=== PATIENT | male | born 1955 | race Caucasian/White ===

== ENCOUNTER 2018-02-11 15:53 | Inpatient (IN) | payer BC ==
[~2018-02-11] VITALS: Ht 188 cm; Wt 162.0 kg
[2018-02-11 17:49] LABS: BASOPHIL % 0.1 % (0-2); PLATELET COUNT 166 x10^3mcL (130-400); RED CELL DISTRIBUTION WIDTH 12.9 % (11.5-14.5)
[2018-02-11 17:58] LABS: CREATININE SERUM 1.6 mg/dL (0.7-1.3); POTASSIUM SERUM 3.9 mmol/L (3.5-5.1)
[2018-02-11 18:00] LABS: BILIRUBIN TOTAL 0.44 mg/dL (0.20-1.00)
[2018-02-11 18:03] LABS: ALBUMIN 2.6 g/dL (3.4-5.0); TOTAL PROTEIN, SERUM 5.3 g/dL (6.4-8.2)
[2018-02-11] MEDS ORDERED: METFORMIN HYDR500 M1 (18:53)
[2018-02-11] MEDS ORDERED: HUMALOG100 U/ML SC (18:54)
[2018-02-11] MEDS ORDERED: ASPIR 8181 MG PO (18:54)
[2018-02-11 19:21] LABS: MAGNESIUM 1.4 mg/dL (1.8-2.4); PHOSPHOROUS 3.4 mg/dL (2.5-4.9)
[2018-02-11 19:27] LABS: T3 TOTAL 0.93 ng/mL
[2018-02-11 19:32] LABS: FREE T4 1.11 ng/dL (0.76-1.46)
[2018-02-11 20:29] VITALS: BP 136/62
[2018-02-11 20:35] VITALS: Ht 188 cm; Wt 162.0 kg
[2018-02-12 02:19] LABS: microscopic required? NO
[2018-02-12 02:28] LABS: urine erythrocyte NEGATIVE (NEGATIVE)
[2018-02-12 02:40] LABS: AMPHETAMINE QUAL UR NONE DETECTED (NEG <=1000)
[2018-02-12 05:41] VITALS: BP 142/64
[2018-02-12 06:18] LABS: CALCIUM 8.3 mg/dL (8.5-10.1); CARBON DIOXIDE 31.6 mmol/L (21-32); CREATININE SERUM 1.3 mg/dL (0.7-1.3); MAGNESIUM 1.7 mg/dL (1.8-2.4); PHOSPHOROUS 3.4 mg/dL (2.5-4.9); POTASSIUM SERUM 3.8 mmol/L (3.5-5.1)
[2018-02-12 06:27] LABS: BASOPHIL % 0.4 % (0-2); PLATELET COUNT 163 x10^3mcL (130-400); RED CELL DISTRIBUTION WIDTH 13.1 % (11.5-14.5)
[2018-02-12 08:00] VITALS: BP 111/75
[2018-02-12 12:58] VITALS: BP 131/76
== END 2018-02-12 15:08 | disposition home or self-care (01) | DRG 299 ==
LOC: ED 15:53 → DU 18:53
PROVIDERS: Emergency Medicine; Family Medicine
DX: I83.92 Asymptomatic varicose veins of left lower extremity (principal); N17.0 Acute kidney failure with tubular necrosis; Z68.42 Body mass index [BMI] 45.0-49.9, adult; I10 Essential (primary) hypertension; D64.9 Anemia, unspecified; I95.9 Hypotension, unspecified; N28.9 Disorder of kidney and ureter, unspecified; Z79.4 Long term (current) use of insulin; Z79.82 Long term (current) use of aspirin; E11.65 Type 2 diabetes mellitus with hyperglycemia; E66.01 Morbid (severe) obesity due to excess calories
CPT/HCPCS: 82962; 83880; 84439; J2001; J2543; J3475; J7030; Q0092